=== PATIENT | female | born 1935 | race Caucasian/White ===

== ENCOUNTER 2021-05-13 07:17 | Observation (INO) ==
[2021-05-13 07:52] LABS: Hematocrit 27.3 % (37.0-47.0); Hemoglobin 8.5 gm/dL (12.5-16.0); Mean Cell Volume 93.2 fl (78-100); Mean Corpuscular Hgb Conc 31.1 g/dl (32-36); Mean Platelet Volume 10.3 fl (8-12.5); Neutrophil # 10.4 K/mm3 (1.3-6.0); Neutrophil % 84.5 % (42-75.0); Platelet Count 434 K/mm3 (150-450); Red Blood Count 2.93 M/mm3 (4.2-5.4); Red Cell Distribution Width 14.4 % (11.5-14.0); White Blood Count 12.2 K/mm3 (4.0-10.5)
[2021-05-13 08:02] LABS: Albumin * 3.2 gm/dl (3.4-5.0); Anion Gap 10.7 mmol/L (6.8-13.8); BUN/Creatinine Ratio 29.2 (9.0-21.6); Bilirubin, Total 0.5 mg/dL (0.0-1.1); Ca. Corrected For Albumin 8.9 mg/dL (8.4-10.2); Calcium * 8.6 mg/dL (7.9-10.9); Carbon Dioxide 29.4 mmol/L (24-32.6); Potassium 3.1 mmol/L (3.4-4.6); Total Protein 6.8 gm/dL (6.2-8.2)
[2021-05-13 08:36] LABS: Urine Appearance Clear (CLEAR); Urine Color Yellow
[2021-05-13] MEDS ORDERED: DIATRIZOATE MEGLUMINE, SODIUM 30 ML BTL PO ONE (08:36)
[2021-05-13 08:37] LABS: Urine Bilirubin 1 mg/dl (NEGATIVE); Urine Blood 5 /ul (NEGATIVE); Urine Ketone Negative (NEGATIVE); Urine Nitrite Negative (NEGATIVE); Urine Protein 15 mg/dL (NEGATIVE); Urine Specific Gravity 1.025 SP.GR. (1.005-1.010); Urine Urobilinogen Normal (NORMAL); Urine pH 5.5 pH (5.0-7.0)
[2021-05-13 08:43] LABS: Urine Bacteria None Seen; Urine WBC 0-5 /hpf (0-5)
[2021-05-13] MEDS ORDERED: MORPHINE SULFATE 4 MG/ML SYRG IV ONE (10:54)
[2021-05-13] MEDS ORDERED: ONDANSETRON HCL/PF 2 MG/ML VIAL IV ONE (10:54)
[2021-05-13] MEDS ORDERED: MIDAZOLAM HCL/PF 5 MG/ML VIAL IV ONE (10:54)
--- NOTE | 2021-05-13 10:59 | ERNOTE ---
Abdominal HPI - Narrative Date of Service: 05/13/21 - General Chief Complaint: Abdominal Pain Time Seen by Provider: 05/13/21 07:59 - Immun/Allergies/Home Medications Immunizatons: IMMUNIZATION HX Immunizations Up to Date Yes Allergies/Adverse Reactions: Allergies No Known Allergies Allergy (Verified 05/13/13 08:50) Home Medications: HOME MEDICATIONS NK 05/13/21 [Last Taken Unknown] - History of Present Illness Narrative: This patient is an 85-year-old female who is here with abdominal pain. The patient has some dementia so her history is suspect. She said that the pain began yesterday. She indicates it began in the left lower quadrant and has since spread upwards. She is not able to describe the pain. She denies vomiting or diarrhea. She cannot tell me if she has had a fever, nausea or constipation. She cannot tell me about her urinary symptoms. Review of Systems - Narrative Narrative: Unreliable. Medical History (Last Reviewed 05/13/21 @ 10:56 by Calvin Jean MD) Confusion Surgical History: Surgical History (Last Reviewed 05/13/21 @ 10:56 by Calvin Jean MD) Surgical history unknown Family History: Family History (Last Reviewed 05/13/21 @ 10:56 by Calvin Jean MD) Other Unknown family medical history Social History: (Last Reviewed 05/13/21 @ 10:56 by Calvin Jean MD) Tobacco: Smoking Status: Never smoker Physical Exam - Physical Exam General Appearance: Present: wd/wn, alert, no apparent distress Head Exam: Present: normal inspection, no evidence of injury Eye Exam: Normal inspection: bilateral Ears, Nose, Throat: Present: normal ENT inspection Neck: Present: normal inspection, nontender, supple Respiratory: Present: no respiratory distress, normal breath sounds, lungs clear Cardiovascular/Chest: Present: regular rate, rhythm, no murmur Gastrointestinal/Abdominal: Present: nondistended, no organomegaly, other - The abdomen has bowel sounds decreased. She is diffusely tender, mostly on the right side. No rebound. Extremity Exam: Present: normal except -, other - The left knee is swollen and ecchymotic. There may be some tenderness. Neurological Exam: Present: alert, no motor/sensory deficits - He has no gross lateralizing deficit., disoriented to time Skin Exam: Present: normal color, warm/dry Progress - Results and Orders Patient's Lab Results:: I have reviewed the patient's lab results. Results and Orders: Laboratory Tests 05/13/21 05/13/21 05/13/21 07:36 07:47 07:47 WBC 12.2 H RBC 2.93 L Hgb 8.5 L Hct 27.3 L MCV 93.2 MCH 29.0 MCHC 31.1 L RDW 14.4 H Plt Count 434 MPV 10.3 Immature Gran % (Auto) 0.30 Immature Gran # (Auto) 0.04 H Neutrophils % 84.5 H Lymphocytes % 12.2 L Monocytes % 2.7 Eosinophils % 0.1 Basophils % 0.2 Nucleated RBC % 0.0 Neutrophils # 10.4 H Lymphocytes # 1.49 L Monocytes # 0.3 Eosinophils # 0.0 Absolute Basophils 0.0 Sodium 142 Plasma Sodium 143 H Potassium 3.1 L Chloride 105 Carbon Dioxide 29.4 Anion Gap 10.7 BUN 28 H Creatinine 0.96 Est GFR (Non-Af Amer) 59 L BUN/Creatinine Ratio 29.2 H Random Glucose 140 H Lactic Acid, Venous Calcium 8.6 Calcium Adj for Albumin 8.9 Total Bilirubin 0.5 AST 11 ALT 9 L Alkaline Phosphatase 82 Total Protein 6.8 Albumin 3.2 L Lipase 81 Urine Color Yellow Urine Appearance Clear Urine pH 5.5 Ur Specific [place] 1.025 Urine Protein 15 H Urine Glucose (UA) Negative Urine Ketones Negative Urine Blood 5 H Urine Nitrate Negative Urine Bilirubin 1 H Urine Urobilinogen Normal Ur Leukocyte Esterase Negative Urine RBC 5-10 H Urine WBC 0-5 Ur Epithelial Cells 0-5 Urine Bacteria None seen Urine Culture Comments No culture indicated 05/13/21 07:47 WBC RBC Hgb Hct MCV MCH MCHC RDW Plt Count MPV Immature Gran % (Auto) Immature Gran # (Auto) Neutrophils % Lymphocytes % Monocytes % Eosinophils % Basophils % Nucleated RBC % Neutrophils # Lymphocytes # Monocytes # Eosinophils # Absolute Basophils Sodium Plasma Sodium Potassium Chloride Carbon Dioxide Anion Gap BUN Creatinine Est GFR (Non-Af Amer) BUN/Creatinine Ratio Random Glucose Lactic Acid, Venous 1.1 Calcium Calcium Adj for Albumin Total Bilirubin AST ALT Alkaline Phosphatase Total Protein Albumin Lipase Urine Color Urine Appearance Urine pH Ur Specific [place] Urine Protein Urine Glucose (UA) Urine Ketones Urine Blood Urine Nitrate Urine Bilirubin Urine Urobilinogen Ur Leukocyte Esterase Urine RBC Urine WBC Ur Epithelial Cells Urine Bacteria Urine Culture Comments - Vital Signs Patient's Vital Signs:: I have reviewed the patient's vital signs. Vital Signs: Vital Signs 05/13/21 07:18 05/13/21 07:28 05/13/21 07:58 Temperature 36.5 C 36.5 C 36.5 C Pulse Rate 95 94 94 Respiratory Rate 19 17 19 Blood Pressure 163/63 H 163/63 H 108/56 O2 Sat by Pulse Oximetry 99 99 99 05/13/21 08:28 05/13/21 09:00 Temperature Pulse Rate 94 96 Respiratory Rate 21 H Blood Pressure 117/45 99/53 O2 Sat by Pulse Oximetry 99 98 - CT/Ultrasound CT/Ultrasound Narrative: CT Head W/O *~ Exam Date: 05/13/2021 10:00 Ordering Physician: Calvin Jean MD HISTORY: Head trauma UNENHANCED CT SCAN OF THE BRAIN Comparison: None Technique: Multiple axial images were obtained through the brain without the use of IV contrast. Due to motion artifact, the patient was scanned twice. Individualized dose optimization technique was used for the performed procedure including automated exposure control, adjustment of the mA and/or kV according to patient size and/or the iterative reconstruction technique. There is varying degrees of motion artifact on both examinations Findings: There is a crescentic density adjacent to the right lateral parietal bone/squamosal portion of the temporal bone. This measures approximately 4.8 x 2.9 by approximately 3.5 cm (AP, transverse, and craniocaudal). There is some calcification within this mass There is erosion of the inner table of the bone in the region of this mass without obvious fracture. There is prominent edema within the right temporal lobe and right parietal lobe. This does produce extrinsic impression upon the right lateral ventricle with subfalcine shift from right to left 4.9 mm. I'm not convinced of additional lesions within the supratentorial brain. I do not see evidence for obvious acute blood. The 3rd and 4th ventricles are midline and are of normal size. The quadrigeminal plate cistern is patent. There is some streak artifact in the posterior fossa, but the cerebellum and visualized amanda appear normal. The ethmoid sinuses demonstrate no significant mucosal disease. The frontal, sphenoid, and visualized maxillary sinuses are clear. The mastoid air cells and middle ears appear to be normally aerated. Bone windows demonstrate no evidence definable for fracture. I do not see evidence for significant soft tissue swelling overlying the calvarium. IMPRESSION: 1. VARYING DEGREES OF MOTION ARTIFACT. 2. 4.8 X 2.9 X 3.5 CM MASS IN THE PERIPHERAL ASPECT OF THE RIGHT TEMPORAL/PARIETAL LOBE WITH MARKED WHITE MATTER EDEMA AND MASS EFFECT RESULTING IN MILD SUBFALCINE SHIFT. 3. BONE EROSION OF THE INNER TABLE OF THE BONE AT THE LEVEL OF THE MASS. THESE FINDINGS ARE CONCERNING FOR NEOPLASM OR METASTASIS. EPIDURAL HEMATOMA IS CONSIDERED LESS LIKELY . NEUROSURGERY CONSULTATION IS RECOMMENDED. Electronically signed by Tito Gongora M.D.. - Progress/Reassessment Chief Complaint: Abdominal Pain Plan - Plan Plan: The nursing staff spoke with family members. They indicated that they wanted her stomach fixed and would decide later on the brain tumor. I called [facility] and spoke with the hospitalist-Dr. Macias, the surgeon-Dr. Trey Christopher, oncologist- Dr. Grady, and neurosurgeon-Dr. Oliver. The concensus was that she would be best served with conservative or palliative care. They would accept the patient in transfer but would continue to recommend conservative or palliative care. Family members were contacted and they agreed with palliative care. I spoke with Dr. Arriaga, the hospitalist. She agrees to keep the patient for comfort care. Departure Clinical Impression: Intracranial mass, Dementia, Perforated stomach - Departure Disposition: Still a patient Condition: Critical Referrals: NONE,NONE [Primary Care Provider] -
[2021-05-13] MEDS ORDERED: DEXAMETHASONE SODIUM PHOSP/PF 10 MG/ML VIAL IV ONE (12:20)
[2021-05-13] MEDS ORDERED: PIPERACILLIN SODIUM/TAZOBACTAM 4.5 GM in DEXTROSE 5 % IN WATER 100 ML IV ONE ×2 (12:30)
[2021-05-13] MEDS ORDERED: NORMAL SALINE 1,000 ML IV ONE (12:31)
--- NOTE | 2021-05-13 16:05 | HP ---
Chief Complaint - Chief Complaint Date of Service: 05/13/21 Time of Service: 05:00 History of Present Illness: The patient is an 85-year-old female with a history of advanced dementia, who has not seen a doctor since 2012. She has been falling and having bruising at h ome. She lives with her son who has special needs. She presented to the emergency room more for falls. Head CT showed mass-effect CVA which was 4.8 x 3.9 cm with bony erosion, concerning for metastases. CT abdomen was done which showed distal thickening, focal perforation and free air. There is free fluid in the pelvis. ED doctor spoke to general surgery and hospitalist at an outside facility who all agreed that it was a poor outcome and surgery was not recommended. They recommended a palliative care approach. Nurses spoke to multiple family members and they were all in agreement for this. She is being admitted for palliative care. Medical History (Last Reviewed 05/13/21 @ 10:56 by Calvin Jean MD) Confusion Surgical History: Surgical History (Last Reviewed 05/13/21 @ 10:56 by Calvin Jean MD) Surgical history unknown Family History: Family History (Last Reviewed 05/13/21 @ 10:56 by Calvin Jean MD) Unknown family medical history Social History: (Last Reviewed 05/13/21 @ 10:56 by Calvin Jean MD) Tobacco: Smoking Status: Never smoker Review Of Systems (GEN) - Review of Systems EENTM: Present: No Symptoms Reported Respiratory: Present: No Symptoms Reported Abdominal: Present: Abdominal Pain Genitourinary: Present: No Symptoms Reported Immunizations: IMMUNIZATION HX Immunizations Up to Date Yes Allergies/Adverse Reactions: Allergies Allergy/AdvReac Type Severity Reaction Status Date / Time No Known Allergies Allergy Verified 05/13/13 08:50 Home Medications: HOME MEDICATIONS NK 05/13/21 [Last Taken Unknown] Exam - Exam Vital Signs: Vital Signs - Last Taken Temp 36.6 C 05/13/21 12:30 Pulse 92 05/13/21 12:30 Resp 15 05/13/21 12:30 BP 111/51 05/13/21 12:30 Pulse Ox 99 05/13/21 12:30 General : Alert and oriented 3 HEENT : Extraocular movements intact, pupils equal, and round Neck: supple no JVD Chest: Clear to auscultation bilaterally. No wheezes Heart : Regular rate and rhythm. S1 and S2 heard. Abdomen : diffuse abdominal tenderness Extremities : No clubbing, cyanosis, or edema Musculoskeletal : Within normal limits Neurological : Moving all 4 extremities. Speech fluent Skin : No obvious rashes, warm, dry Psychiatric : Cooperative, appropriate mood and affect Diagnostic Studies: Abnormal Lab Results 05/13/21 05/13/21 05/13/21 Range/Units 07:36 07:47 07:47 WBC 12.2 H (4.0-10.5) K/mm3 RBC 2.93 L (4.2-5.4) M/mm3 Hgb 8.5 L (12.5-16.0) gm/dL Hct 27.3 L (37.0-47.0) % MCHC 31.1 L (32-36) g/dl RDW 14.4 H (11.5-14.0) % Immature Gran # (Auto) 0.04 H (0.000-0.0310) K/mm3 Neutrophils % 84.5 H (42-75.0) % Lymphocytes % 12.2 L (20-51) % Neutrophils # 10.4 H (1.3-6.0) K/mm3 Lymphocytes # 1.49 L (1.5-3.5) k/mm3 Plasma Sodium 143 H (130-142) mmol/L Potassium 3.1 L (3.4-4.6) mmol/L BUN 28 H (3-23) mg/dL Est GFR (Non-Af Amer) 59 L (60-130) mL/min BUN/Creatinine Ratio 29.2 H (9.0-21.6) Random Glucose 140 H (70-110) mg/dL ALT 9 L (19-67) U/L Albumin 3.2 L (3.4-5.0) gm/dl Urine Protein 15 H (NEGATIVE) mg/dL Urine Blood 5 H (NEGATIVE) /ul Urine Bilirubin 1 H (NEGATIVE) mg/dl Urine RBC 5-10 H (0-5) /hpf Laboratory Results WBC 12.2 K/mm3 (4.0-10.5) H 05/13/21 07:47 RBC 2.93 M/mm3 (4.2-5.4) L 05/13/21 07:47 Hgb 8.5 gm/dL (12.5-16.0) L 05/13/21 07:47 Hct 27.3 % (37.0-47.0) L 05/13/21 07:47 MCV 93.2 fl (78-100) 05/13/21 07:47 MCH 29.0 pg (27-31) 05/13/21 07:47 MCHC 31.1 g/dl (32-36) L 05/13/21 07:47 RDW 14.4 % (11.5-14.0) H 05/13/21 07:47 Plt Count 434 K/mm3 (150-450) 05/13/21 07:47 MPV 10.3 fl (8-12.5) 05/13/21 07:47 Immature Gran % (Auto) 0.30 % (0.001-0.429) 05/13/21 07:47 Immature Gran # (Auto) 0.04 K/mm3 (0.000-0.0310) H 05/13/21 07:47 Neutrophils % 84.5 % (42-75.0) H 05/13/21 07:47 Lymphocytes % 12.2 % (20-51) L 05/13/21 07:47 Monocytes % 2.7 % (0.0-9) 05/13/21 07:47 Eosinophils % 0.1 % (0.0-3.0) 05/13/21 07:47 Basophils % 0.2 % (0.0-1.0) 05/13/21 07:47 Nucleated RBC % 0.0 k/mm3 (0-1) 05/13/21 07:47 Neutrophils # 10.4 K/mm3 (1.3-6.0) H 05/13/21 07:47 Lymphocytes # 1.49 k/mm3 (1.5-3.5) L 05/13/21 07:47 Monocytes # 0.3 k/mm3 (0.0-1.0) 05/13/21 07:47 Eosinophils # 0.0 k/mm3 (0.0-0.7) 05/13/21 07:47 Absolute Basophils 0.0 k/mm3 (0.0-0.1) 05/13/21 07:47 Sodium 142 mmol/L (132-142) 05/13/21 07:47 Plasma Sodium 143 mmol/L (130-142) H 05/13/21 07:47 Potassium 3.1 mmol/L (3.4-4.6) L 05/13/21 07:47 Chloride 105 mmol/L (97-106) 05/13/21 07:47 Carbon Dioxide 29.4 mmol/L (24-32.6) 05/13/21 07:47 Anion Gap 10.7 mmol/L (6.8-13.8) 05/13/21 07:47 BUN 28 mg/dL (3-23) H 05/13/21 07:47 Creatinine 0.96 mg/dL (0.4-1.4) 05/13/21 07:47 Est GFR (Non-Af Amer) 59 mL/min (60-130) L 05/13/21 07:47 BUN/Creatinine Ratio 29.2 (9.0-21.6) H 05/13/21 07:47 Random Glucose 140 mg/dL (70-110) H 05/13/21 07:47 Lactic Acid, Venous 1.1 mmol/L (0.4-2.0) 05/13/21 07:47 Calcium 8.6 mg/dL (7.9-10.9) 05/13/21 07:47 Calcium Adj for Albumin 8.9 mg/dL (8.4-10.2) 05/13/21 07:47 Total Bilirubin 0.5 mg/dL (0.0-1.1) 05/13/21 07:47 AST 11 U/L (0-48) 05/13/21 07:47 ALT 9 U/L (19-67) L 05/13/21 07:47 Alkaline Phosphatase 82 U/L (50-170) 05/13/21 07:47 Total Protein 6.8 gm/dL (6.2-8.2) 05/13/21 07:47 Albumin 3.2 gm/dl (3.4-5.0) L 05/13/21 07:47 Lipase 81 U/L (73-393) 05/13/21 07:47 Urine Color Yellow 05/13/21 07:36 Urine Appearance Clear (CLEAR) 05/13/21 07:36 Urine pH 5.5 pH (5.0-7.0) 05/13/21 07:36 Ur Specific [place] 1.025 SP.GR. (1.005-1.010) 05/13/21 07:36 Urine Protein 15 mg/dL (NEGATIVE) H 05/13/21 07:36 Urine Glucose (UA) Negative mg/dL (NEGATIVE) 05/13/21 07:36 Urine Ketones Negative mg/dL (NEGATIVE) 05/13/21 07:36 Urine Blood 5 /ul (NEGATIVE) H 05/13/21 07:36 Urine Nitrate Negative (NEGATIVE) 05/13/21 07:36 Urine Bilirubin 1 mg/dl (NEGATIVE) H 05/13/21 07:36 Urine Urobilinogen Normal EU/dl (NORMAL) 05/13/21 07:36 Ur Leukocyte Esterase Negative /ul (NEGATIVE) 05/13/21 07:36 Urine RBC 5-10 /hpf (0-5) H 05/13/21 07:36 Urine WBC 0-5 /hpf (0-5) 05/13/21 07:36 Ur Epithelial Cells 0-5 /hpf (0-5) 05/13/21 07:36 Urine Bacteria None seen (NONE) 05/13/21 07:36 Urine Culture Comments No culture indicated 05/13/21 07:36 SARS-CoV-2 (PCR) Not detected (NotDetected) 05/13/21 14:10 Assessment/Plan - Narrative Narrative: The patient is an 85-year-old female with a history of advanced dementia, presenting with metastatic disease, 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 Plan - Continue comfort measures - DNR/DNI - Does not require DVT prophylaxis due to comfort measures - Morphine as needed - Ativan as needed - Liberalize diet - Patient will likely need hospice evaluation to help with transition of care a nd disposition planning.
[2021-05-13] MEDS: MORPHINE SULFATE 2 MG/ML DISP.SYRIN IV PRN (20:12)
[2021-05-13] MEDS: LORazepam 2 MG/ML DISP.SYRIN IV PRN (23:23)
[2021-05-14] MEDS: MORPHINE SULFATE 2 MG/ML DISP.SYRIN IV PRN ×2 (09:27→16:16)
--- NOTE | 2021-05-14 10:13 | PN ---
Subjective - Date and Time Seen Date: 05/14/21 Time: 09:10 Subjective Narrative: Patient admitted yesterday afternoon for comfort cares. No family present for my evaluation. She continues to have abdominal pain. Objective - Review of Systems Generalized/Overall Review: Reports: No Symptoms Reported - unable to obtain - Vitals Vitals: Last Vital Signs Temp 36.4 C 05/13/21 16:52 Pulse 104 H 05/13/21 16:52 Resp 16 05/13/21 16:52 BP 120/42 05/13/21 16:52 Pulse Ox 94 05/13/21 16:52 - Exam Constitutional: Present: Somnolent Respiratory: Present: lungs clear Cardiovascular/Chest: Present: regular rate, rhythm Abdomen: Present: tender Extremity: Absent: lower extremity edema Skin Exam: Present: other - bruising of left knee Eye contact: Present: other - does not interact. Partially wakens, and holds abdomen, but does not answer questions or make eye contact Assessment/Plan Plan Narrative: Patient with possible dementia was brought to the ED yesterday after having some abdominal pain. She did not see a doctor regularly. Workup in the ED found several significant findings: CT abdomen showed perforated stomach with free air and oral contrast extravasating into the abdominal cavity, and CT head showed a mass with edema and mass effect causing subfalcine shift. Family members were in agreement to pursue comfort measures only. There is no phone number for a family member for me to call to see which hospice organization they would like the referral placed. Continue IV morphine and lorazepam for comfort measures, and can adjust doses as needed. Will add additional meds for symptom management if needed. - Problems/Diagnosis (1) Perforated stomach Problem: Acute (2) Intracranial mass Problem: Acute (3) Dementia Problem: Acute (4) Anemia Problem: Acute (5) Hypokalemia Problem: Acute (6) Comfort measures only status Problem: Acute
[2021-05-15] MEDS: MORPHINE SULFATE 2 MG/ML DISP.SYRIN IV PRN ×5 (01:17→23:02)
--- NOTE | 2021-05-15 08:20 | PN ---
Progess Note - Interim Date: 05/15/21 Time: 08:19 Narrative: 05/15/21 08:19 AAO x 2. c/o abdominal pain- LUQ more than LLQ. Will get hospice consult. We will continue with comfort cares.
[2021-05-15] MEDS ORDERED: GLYCERIN/PROPYLENE GLYCOL 150 DROP BTL EACHEYE PRN (08:37)
[2021-05-15] MEDS ORDERED: ONDANSETRON HCL/PF 2 MG/ML VIAL IV PRN (08:37)
[2021-05-15] MEDS ORDERED: BISACODYL 10 MG SUPP.RECT RC PRN (08:37)
[2021-05-15] MEDS ORDERED: ALBUTEROL SULFATE 2.5 MG/3 ML VIAL.NEB IH PRN (08:37)
[2021-05-15] MEDS ORDERED: SCOPOLAMINE HYDROBROMIDE 1.5 MG PATC TD SCH (08:45)
--- NOTE | 2021-05-15 15:46 | PN ---
Subjective - Date and Time Seen Date: 05/15/21 Time: 15:39 Subjective Narrative: AAO x 2. c/o abdominal pain- LUQ more than LLQ. Will get hospice consult. We will continue with comfort cares. Objective - Review of Systems Abdominal: Reports: Abdominal Pain Misc: All systems neg except as marked - Unreliable due to patient's dementia - Vitals Vitals: Last Vital Signs Temp 36.2 C 05/15/21 14:36 Pulse 95 05/15/21 14:36 Resp 18 05/15/21 14:36 BP 140/54 05/15/21 14:36 Pulse Ox 95 05/15/21 14:36 - Exam Constitutional: Present: Alert - Awake alert oriented x1, Elderly ENT Exam: Present: hearing grossly normal Neck: Present: supple. Absent: lymphadenopathy (R), lymphadenopathy (L) Respiratory: Present: decreased breath sounds, No rales, No wheezing Cardiovascular/Chest: Present: regular rate, rhythm, no JVD, no murmur Abdomen: Present: soft, tender, distended - Is slightly distended, hypoactive Extremity: Present: no calf tenderness, pedal edema Assessment/Plan Plan Narrative: Elham is an 85-year-old female with dementia who was admitted for palliative care. The patient on CT scan showed gastric perforation and a head CT scan showing an intracranial mass likely metastatic. The emergency room physician had talked to the surgeons and they recommended palliative care as she is not a good surgical candidate. We will continue with comfort measures and referred to hospice care. The family will be meeting tonight to decide which hospice care they want. - Problems/Diagnosis (1) Comfort measures only status Problem: Acute (2) Intracranial mass Problem: Acute (3) Dementia Problem: Acute (4) Perforated stomach Problem: Acute (5) Anemia Problem: Acute (6) Hypokalemia Problem: Acute
[2021-05-16] MEDS: MORPHINE SULFATE 2 MG/ML DISP.SYRIN IV PRN ×4 (03:13→20:58)
[2021-05-16] MEDS: LORazepam 2 MG/ML DISP.SYRIN IV PRN ×4 (05:26→23:45)
--- NOTE | 2021-05-16 08:14 | PN ---
Progess Note - Interim Date: 05/16/21 Time: 08:13 Narrative: 05/16/21 08:14 Patient sleeping byt slightly opened her eyes and went back to sleep. awaiting Hospice.
--- NOTE | 2021-05-16 15:58 | PN ---
Subjective - Date and Time Seen Date: 05/16/21 Time: 15:55 Subjective Narrative: Patient sleeping but slightly opened her eyes when her name was called and went back to sleep. awaiting Hospice. Objective - Review of Systems Misc: All systems neg except as marked - Unobtainable due to patient's dementia/sedation - Vitals Vitals: Last Vital Signs Temp 36.2 C 05/15/21 14:36 Pulse 95 05/15/21 14:36 Resp 18 05/15/21 14:36 BP 140/54 05/15/21 14:36 Pulse Ox 95 05/15/21 14:36 - Exam Constitutional: Present: Alert - AAO x 1 ENT Exam: Present: hard of hearing Neck: Present: supple. Absent: lymphadenopathy (R), lymphadenopathy (L) Respiratory: Present: decreased breath sounds, No rales, No wheezing Cardiovascular/Chest: Present: regular rate, rhythm, no JVD, no murmur Abdomen: Present: tender, firm, distended - Slightly distended, hypoactive Extremity: Present: no calf tenderness, pedal edema Assessment/Plan Plan Narrative: Regina is hospital day 4 for a perforated thickened distal stomach with extravasation of dye and an intracranial mass suspicious for metastatic disease. Emergency room physician referred him to [facility] surgical department and they recommended just palliative care. She was admitted for comfort cares only. The family is here today and we discussed hospice care and continue with comfort cares for the patient. 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 It is unlikely an ulcer as there is also an intracranial mass which is likely metastases rather than an epidural hematoma as there is also bony erosion. They have decided to send their mother to the hospice house in [facility] tomorrow. We will continue with comfort cares. - Problems/Diagnosis (1) Comfort measures only status Problem: Acute (2) Intracranial mass Problem: Acute (3) Dementia Problem: Acute (4) Perforated stomach Problem: Acute (5) Anemia Problem: Acute (6) Hypokalemia Problem: Acute
[2021-05-17] MEDS: MORPHINE SULFATE 2 MG/ML DISP.SYRIN IV PRN ×2 (01:44→07:10)
[2021-05-17] MEDS: LORazepam 2 MG/ML DISP.SYRIN IV PRN (04:20)
--- NOTE | 2021-05-17 07:26 | DS ---
(1) Comfort measures only status Problem: Acute (2) Intracranial mass Problem: Acute (3) Dementia Problem: Acute (4) Perforated stomach Problem: Acute (5) Anemia Problem: Acute (6) Hypokalemia Problem: Acute Date of Discharge:: 05/17/21 Hospital Course: Elham Pemberton is an 85-year-old female with a history of advanced dementia, who has not seen a doctor since 2012. She has been falling and having bruising at home. She lives with her son who has special needs. She presented to the emergency room more for falls. Head CT showed -IMPRESSION: 1. VARYING DEGREES OF MOTION ARTIFACT. 2. 4.8 X 2.9 X 3.5 CM MASS IN THE PERIPHERAL ASPECT OF THE RIGHT TEMPORAL/PAR IETAL LOBE WITH MARKED WHITE MATTER EDEMA AND MASS EFFECT RESULTING IN MILD SUBFALCINE SHIFT. 3. BONE EROSION OF THE INNER TABLE OF THE BONE AT THE LEVEL OF THE MASS. THESE FINDINGS ARE CONCERNING FOR NEOPLASM OR METASTASIS. EPIDURAL HEMATOMA IS CONSIDERED LESS LIKELY . NEUROSURGERY CONSULTATION IS RECOMMENDED. CT abdomen was done which showed IMPRESSION: 1. ABNORMAL THICKENING OF THE DISTAL STOMACH WITH A FOCAL PERFORATION WITH EXTRAVASATION OF ORAL CONTRAST AND FREE AIR INTO THE ABDOMEN. TUMOR CANNOT BE EXCLUDED. SURGICAL CONSULTATION IS RECOMMENDED. 2. DISTENDED GALLBLADDER WITHOUT GALLSTONES OR DEFINABLE INFLAMMATION. 3. SMALL AMOUNT OF FREE. There is free fluid in the pelvis. ED doctor spoke to general surgery and hospitalist at an outside facility who all agreed that it was a poor outcome and surgery was not recommended. They recommended a palliative care approach. Nurses spoke to multiple family members and they were all in agreement for this. She was admitted for palliative care. The patient was started on comfort cares protocol which included Ativan and morphine on as needed basis. The rest of the family was able to come in and after discussion with me and with showcase trimmer about the patient's poor prognosis they have agreed with hospice care. She is going to the hospice house in [facility] today. Procedures Performed: none Results and Findings: Pending Mircobiology Results 05/13/21 08:00 Blood Blood Culture - Preliminary NO GROWTH AFTER 48 HOURS 05/13/21 07:47 Blood Blood Culture - Preliminary NO GROWTH AFTER 48 HOURS Lab Pending Results 05/13/21 07:36: Urine Color Yellow, Urine Appearance Clear, Urine pH 5.5, Ur Specific [place] 1.025, Urine Protein 15 H, Urine Glucose (UA) Negative, Urine Ketones Negative, Urine Blood 5 H, Urine Nitrate Negative, Urine Bilirubin 1 H, Urine Urobilinogen Normal, Ur Leukocyte Esterase Negative, Urine RBC 5-10 H, Urine WBC 0-5, Ur Epithelial Cells 0-5, Urine Bacteria None seen, Urine Culture Comments No culture indicated 05/13/21 07:47: WBC 12.2 H, RBC 2.93 L, Hgb 8.5 L, Hct 27.3 L, MCV 93.2, MCH 29.0, MCHC 31.1 L, RDW 14.4 H, Plt Count 434, MPV 10.3, Immature Gran % (Auto) 0.30, Immature Gran # (Auto) 0.04 H, Neutrophils % 84.5 H, Lymphocytes % 12.2 L, Monocytes % 2.7, Eosinophils % 0.1, Basophils % 0.2, Nucleated RBC % 0.0, Neutrophils # 10.4 H, Lymphocytes # 1.49 L, Monocytes # 0.3, Eosinophils # 0.0, Absolute Basophils 0.0 05/13/21 07:47: Sodium 142, Plasma Sodium 143 H, Potassium 3.1 L, Chloride 105, Carbon Dioxide 29.4, Anion Gap 10.7, BUN 28 H, Creatinine 0.96, Est GFR (Non-Af Amer) 59 L, BUN/Creatinine Ratio 29.2 H, Random Glucose 140 H, Calcium 8.6, Calcium Adj for Albumin 8.9, Total Bilirubin 0.5, AST 11, ALT 9 L, Alkaline Phosphatase 82, Total Protein 6.8, Albumin 3.2 L, Lipase 81 05/13/21 07:47: Lactic Acid, Venous 1.1 05/13/21 14:10: SARS-CoV-2 (PCR) Not detected Discharge Location: [facility] - The [facility] House Disposition: Hospice Medical Facility Condition: Critical Discharge Activity: Activity as tolerated Discharge Diet: NPO - Perforated distal stomach Referrals: NONE,NONE [Primary Care Provider] - Additional Patient Instructions (free text): Plan for the Hospice House at [facility], for acute hospice admission. Complete Home Medications List: Complete Home Medication List: Albuterol Sulfate [Albuterol Sulfate 2.5 MG/3 ML] 2.5 mg IH Q6H PRN vial.neb 05/17/21 Bisacodyl [Dulcolax Suppository] 10 mg RC PRN PRN supp.rect 05/17/21 Glycerin/Propylene Glycol [Artificial Tears] 2 drp EACHEYE PRN PRN btl 05/17/21 LORazepam [Ativan] 1 mg IV Q4H PRN disp.syrin 05/17/21 Morphine Sulfate 2 mg IV Q4H PRN disp.syrin 05/17/21 Ondansetron HCl/Pf [Zofran] 4 mg IV Q4H PRN vial 05/17/21 Scopolamine [Transderm-Scop] 1.5 mg TD Q72H patch.[id number] 05/17/21 Forms: Patient Portal Registration
[2021-05-17 07:40] VITALS: BP 113/45
== END 2021-05-17 10:21 | disposition hospice, home (50) ==
LOC: MS 07:17 → ER 07:17 → MS 16:40
PROVIDERS: ADMIT Internal Medicine; ATTEND Internal Medicine